=== PATIENT | male | born 1990 | race Caucasian/White ===

== ENCOUNTER 2017-11-23 17:42 | Emergency (ER) | payer MEDICARE, OTHER ==
[2017-11-23 17:50] VITALS: BP 112/70; PULSE 86; RESP 18; TEMP 98.5
--- NOTE | 2017-11-23 18:20 | XR ---
EXAMINATION TYPE: XR chest 2V DATE OF EXAM: 11/23/2017 COMPARISON: 04/29/1711 HISTORY: Chest pain TECHNIQUE: Frontal and lateral views of the chest are obtained. FINDINGS: Heart and mediastinum are normal. Lungs are clear. Diaphragm is normal. Bony thorax is int act. IMPRESSION: Normal chest. No change.
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
[2017-11-23] MEDS ORDERED: predniSONE 50 MG TAB PO STA (18:53)
== END 2017-11-23 18:58 | disposition home or self-care (01) ==
LOC: EC 17:42
DX: R05 Cough (principal); R09.81 Nasal congestion; R09.89 Other specified symptoms and signs involving the circulatory and respiratory systems; J02.9 Acute pharyngitis, unspecified; F17.200 Nicotine dependence, unspecified, uncomplicated
CPT/HCPCS: 87081; 87430; 71046; 99283; J7512

== ENCOUNTER 2017-12-05 15:37 | Emergency (ER) | payer MEDICARE, OTHER ==
[2017-12-05 15:46] VITALS: BP 136/83; PULSE 78; RESP 16; TEMP 98.2
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
[2017-12-05] MEDS ORDERED: HYDROcodone/APAP 5-325MG 1 EACH TAB PO STA (16:38)
== END 2017-12-05 16:47 | disposition home or self-care (01) ==
LOC: EC 15:37
DX: K08.89 Other specified disorders of teeth and supporting structures (principal); F17.200 Nicotine dependence, unspecified, uncomplicated
CPT/HCPCS: 99282

== ENCOUNTER 2017-12-13 21:28 | Emergency (ER) | payer MEDICARE, OTHER ==
[2017-12-13 21:38] VITALS: BP 120/75; PULSE 85; RESP 16; TEMP 98.3
[2017-12-13] MEDS ORDERED: KETOROLAC 30 MG/ML 1 ML VIAL IM STA (22:53)
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
[2017-12-13] MEDS ORDERED: PENICILLIN V POTASSIUM 250 MG TAB PO STA (23:41)
[2017-12-13] MEDS ORDERED: PENICILLIN VK 500MG STARTER 4 TAB BTL PO STA (23:54)
== END 2017-12-14 00:02 | disposition home or self-care (01) ==
LOC: EC 21:28
DX: M27.3 Alveolitis of jaws (principal); K08.89 Other specified disorders of teeth and supporting structures; K08.409 Partial loss of teeth, unspecified cause, unspecified class; F17.200 Nicotine dependence, unspecified, uncomplicated
CPT/HCPCS: 99282; 96372; J1885

== ENCOUNTER 2018-11-20 17:17 | Emergency (ER) | payer MEDICARE, OTHER ==
[2018-11-20 17:23] VITALS: BP 119/77; PULSE 92; RESP 18; TEMP 98.2
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
== END 2018-11-20 18:20 | disposition home or self-care (01) ==
LOC: EC 17:17
DX: S90.851A Superficial foreign body, right foot, initial encounter (principal); F17.200 Nicotine dependence, unspecified, uncomplicated; W45.8XXA Other foreign body or object entering through skin, initial encounter
CPT/HCPCS: 28190; 99283

== ENCOUNTER 2018-11-28 17:02 | Emergency (ER) | payer MEDICARE, OTHER ==
[2018-11-28 17:05] VITALS: BP 121/75; PULSE 91; RESP 20; TEMP 98
[2018-11-28] MEDS ORDERED: SODIUM CHLORIDE 0.9% 1,000 ML IV STA (17:06)
[2018-11-28] MEDS ORDERED: ONDANSETRON 4 MG/2 ML VIAL IVP STA (17:07)
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
[2018-11-28 17:36] LABS: Basophils # (A) 0.2 k/uL (0-0.2); Basophils % (A) 1 %; Eosinophils # (A) 0.3 k/uL (0-0.7); Eosinophils % (A) 3 %; HCT 47.1 % (39.0-53.0); HGB 16.4 gm/dL (13.0-17.5); Lymphocytes # (A) 1.9 k/uL (1.0-4.8); Lymphocytes % (A) 17 %; MCH 31.2 pg (25.0-35.0); MCHC 34.8 g/dL (31.0-37.0); MCV 89.7 fL (80.0-100.0); Mean Platelet Volume 7.1; Monocytes # (A) 0.8 k/uL (0-1.0); Monocytes % (A) 7 %; Neutrophils # (A) 8.2 k/uL (1.3-7.7); Neutrophils % (A) 71 %; Platelet Count 211 k/uL (150-450); RBC 5.26 m/uL (4.30-5.90); RDW 15.1 % (11.5-15.5); WBC 11.5 k/uL (3.8-10.6)
[2018-11-28 17:49] LABS: ALT 36 U/L (21-72); AST 24 U/L (17-59); African American GFR (CKD) >90 (>60 ml/min/1.73 sqM); Albumin 3.7 g/dL (3.5-5.0); Alkaline Phosphatase 43 U/L (38-126); Anion Gap 6 mmol/L; Blood Urea Nitrogen 7 mg/dL (9-20); Calcium 9.2 mg/dL (8.4-10.2); Carbon Dioxide 27 mmol/L (22-30); Chloride 107 mmol/L (98-107); Glucose 93 mg/dL (74-99); Sodium 140 mmol/L (137-145); Total Bilirubin 0.5 mg/dL (0.2-1.3); Total Protein 5.7 g/dL (6.3-8.2)
== END 2018-11-28 18:18 | disposition home or self-care (01) ==
LOC: EC 17:02
DX: K52.9 Noninfective gastroenteritis and colitis, unspecified (principal); F17.200 Nicotine dependence, unspecified, uncomplicated
CPT/HCPCS: 36415; 80053; 83690; 85025; 99284; 96374; 96361; J2405

== ENCOUNTER 2020-02-26 09:29 | Emergency (ER) | payer MEDICARE, OTHER | END 2020-02-26 09:33 | disposition left against medical advice (07) | LOC: EC 09:29 | DX: R11.10 Vomiting, unspecified (principal); R19.7 Diarrhea, unspecified; R05 Cough; Z53.8 Procedure and treatment not carried out for other reasons | CPT/HCPCS: 99499 ==

== ENCOUNTER 2020-03-06 09:11 | Observation (INO) | payer MEDICARE, OTHER ==
[2020-03-06] MEDS ORDERED: SODIUM CHLORIDE 0.9% 500 ML 500 ML IV ONE (09:26)
[2020-03-06 09:57] LABS: Basophils # (A) 0.1 k/uL (0-0.2); Basophils % (A) 1 %; Eosinophils # (A) 0.3 k/uL (0-0.7); Eosinophils % (A) 2 %; HCT 54.9 % (39.0-53.0); HGB 18.7 gm/dL (13.0-17.5); Lymphocytes # (A) 3.4 k/uL (1.0-4.8); Lymphocytes % (A) 23 %; MCH 31.9 pg (25.0-35.0); MCV 93.6 fL (80.0-100.0); Mean Platelet Volume 7.7; Monocytes # (A) 0.7 k/uL (0-1.0); Monocytes % (A) 5 %; Neutrophils # (A) 10.1 k/uL (1.3-7.7); Neutrophils % (A) 68 %; Platelet Count 283 k/uL (150-450); RBC 5.87 m/uL (4.30-5.90); RDW 12.9 % (11.5-15.5); WBC 14.9 k/uL (3.8-10.6)
[2020-03-06 10:03] LABS: Appearance,Urine Clear (Clear); Bacteria,Urine Rare /hpf; Bilirubin,Urine Negative (Negative); Blood,Urine Moderate (Negative); Color,Urine Light Yellow; Glucose,Urine (UA) Negative (Negative); Ketones,Urine 1+ (Negative); Leukocyte Esterase,Urine Negative (Negative); Mucus,Urine Rare /hpf; Nitrite,Urine Negative (Negative); PH, Urine 5.5 (5.0-8.0); Protein,Urine 1+ (Negative); RBC,Urine 4 /hpf (0-5); Specific Gravity,Urine 1.013 (1.001-1.035); Sperm,Urine Rare /hpf; Urobilinogen,Urine <2.0 mg/dL (<2.0); WBC,Urine <1 /hpf (0-5)
[2020-03-06 10:08] LABS: Amphetamine Screen,Urine Not Detected (NotDetected); Barbiturate Screen,Urine Not Detected (NotDetected); Benzodiazepines Screen,Urine Not Detected (NotDetected); Cocaine Screen,Urine Not Detected (NotDetected); Methadone Screen, Urine Not Detected (NotDetected); Opiate Screen,Urine Not Detected (NotDetected); Oxycodone Screen, Urine Not Detected (NotDetected); Phencyclidine Screen,Urine Not Detected (NotDetected); Tricyclic Antidepressant,Urine Not Detected (NotDetected); Urn Cannabinoid Scrn Detected (NotDetected)
[2020-03-06 10:13] LABS: AST 45 U/L (17-59); African American GFR (CKD) >90 (>60 ml/min/1.73 sqM); Albumin 5.1 g/dL (3.5-5.0); Alkaline Phosphatase 79 U/L (38-126); Anion Gap 21 mmol/L; Blood Urea Nitrogen 12 mg/dL (9-20); Calcium 9.5 mg/dL (8.4-10.2); Carbon Dioxide 10 mmol/L (22-30); Chloride 108 mmol/L (98-107); Glucose 180 mg/dL (74-99); Non-African American GFR(CKD) >90 (>60 ml/min/1.73 sqM); Potassium 4.2 mmol/L (3.5-5.1); Sodium 139 mmol/L (137-145); Total Bilirubin 0.7 mg/dL (0.2-1.3); Total Protein 7.8 g/dL (6.3-8.2)
--- NOTE | 2020-03-06 10:16 | CT ---
EXAMINATION TYPE: CT brain wo con DATE OF EXAM: 03/06/2020 COMPARISON: CT brain 01/15/2011 HISTORY: Altered mental status CT DLP: 1142.4 mGycm. Automated Exposure Control for Dose Reduction was Utilized. TECHNIQUE: CT scan of the head is performed without contrast. FINDINGS: There is no acute intracranial hemorrhage, mass effect, or midline shift identified. The ventricles and sulci are within normal limits in size. The globes are intact and the visualized sin uses are clear. Dental amalgam causes some streak artifact. Question some patchy white matter low-att enuation. IMPRESSION: No acute intracranial hemorrhage, mass effect, or midline shift is seen. Question some n onspecific white matter low-attenuation, MRI may be of benefit
[2020-03-06 10:20] LABS: ALT 42 U/L (4-49)
[2020-03-06 10:32] LABS: Partial Thromboplastin Time 22.3 sec (22.0-30.0); Prothrombin Time 10.2 sec (9.0-12.0)
--- NOTE | 2020-03-06 11:01 | XR ---
EXAMINATION TYPE: XR chest 2V DATE OF EXAM: 03/06/2020 COMPARISON: Chest x-ray November 23, 2017 HISTORY: Seizure and weakness. TECHNIQUE: Frontal and lateral views of the chest are obtained. FINDINGS: There is no new suspicious focal air space opacity, pleural effusion, or pneumothorax seen . The cardiac silhouette size remains within normal limits. The osseous structures are intact. Ove rlying EKG leads currently. IMPRESSION: No acute cardiopulmonary process. No significant change from prior.
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
[2020-03-06] MEDS ORDERED: ACETAMINOPHEN TAB 500 MG TAB PO STA (11:11)
[2020-03-06 11:50] LABS: ALT 35 U/L (4-49); AST 46 U/L (17-59); African American GFR (CKD) >90 (>60 ml/min/1.73 sqM); Albumin 4.7 g/dL (3.5-5.0); Alkaline Phosphatase 65 U/L (38-126); Anion Gap 8 mmol/L; Blood Urea Nitrogen 12 mg/dL (9-20); Calcium 9.2 mg/dL (8.4-10.2); Carbon Dioxide 21 mmol/L (22-30); Chloride 110 mmol/L (98-107); Glucose 77 mg/dL (74-99); Non-African American GFR(CKD) >90 (>60 ml/min/1.73 sqM); Potassium 4.4 mmol/L (3.5-5.1); Sodium 139 mmol/L (137-145); Total Bilirubin 0.7 mg/dL (0.2-1.3); Total Protein 7.3 g/dL (6.3-8.2)
[2020-03-06] MEDS ORDERED: LORazepam 2 MG/ML INJ IV PRN (12:34)
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
--- NOTE | 2020-03-06 15:50 | EEG ---
ELECTROENCEPHALOGRAM REPORT DATE OF SERVICE: 03/06/2020 PREAMBLE: This is a 29-year-old male with new onset seizure. EEG FINDINGS: This is a 21 channel routine EEG recording on this patient utilizing 10/20 international system with referential and bipolar montages. The background consists of well-developed, moderately well regulated, 8-10 hertz alpha, reactive to eye opening and closing. Intermittent paroxysmal high-amplitude rhythmic and dysrhythmic 6 hertz theta activity. Background is posterior dominant and is reactive to eye opening and closing. Drowsiness was seen with presence of bilaterally symmetric theta frequency rhythm. Some stage II sleep was seen with presence of sleep spindles and vertex waves. Sharp appearing waves were seen, but did not appear clearly epileptiform in nature. There is no definitive epileptiform activity seen. EKG rhythm lead revealed no obvious arrhythmia. IMPRESSION: This is an abnormal EEG due to intermittent, paroxysmal, high amplitude rhythmic 6 Hz theta activity seen in a generalized distribution. This is suggestive of mild generalized cerebral dysfunction as can be seen with encephalopathy of metabolic or vascular origin. Paroxysmal high amplitude rhythmic theta activity may suggest convulsive tendency. No definitive epileptiform activity was seen. Suggest prolonged, sleep-deprived EEG. MMODL / IJN: [id number] / [facility]
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
[2020-03-06] MEDS: ACETAMINOPHEN TAB 325 MG TAB PO PRN (18:19)
[2020-03-07 07:57] VITALS: BP 128/76; PULSE 74; RESP 12; TEMP 98.6
--- NOTE | 2020-03-07 09:56 | MR ---
EXAMINATION TYPE: MR brain wo/w con DATE OF EXAM: 03/07/2020 COMPARISON: CT brain 03/06/2020 HISTORY: New onset seizure, head injury CONTRAST: Performed utilizing 9.5 mL intravenous Gadavist gadolinium contrast. TECHNIQUE: Multiplanar, multiecho imaging on a 3.0 Mallika magnet is performed through the brain. Stud y is performed within 24 hours of arrival to the hospital. The craniovertebral junction is normal. The pituitary is normal. Diffusion-weighted imaging is performed. No abnormal hyperintensity is present to suggest an acute i ntracranial infarct or acute ischemic change. There is a punctate hyperintensity within the right merino radiata. Similar smaller punctate area may be on the left. This is within normal limits for the patient age. Otherwise, signal through the brai n is normal. Ventricles and sulci are appropriate for the patient age. Temporal lobes appear symmetrical. Following contrast administration, no abnormal enhancement is evident. IMPRESSIONS: 1. Normal pre and postcontrast MRI brain
[2020-03-07] MEDS: ACETAMINOPHEN TAB 325 MG TAB PO PRN (10:24)
[2020-03-07] MEDS ORDERED: CEPHALEXIN 500 MG CAP PO STA (12:27)
[2020-03-07] MEDS ORDERED: levETIRAcetam 500 MG TAB PO STA (12:42)
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
== END 2020-03-07 13:13 | disposition home or self-care (01) ==
LOC: EC 09:11 → 1SOBS 11:19
PROVIDERS: ADMIT Internal Medicine; ATTEND Internal Medicine
DX: R56.9 Unspecified convulsions (principal); R00.0 Tachycardia, unspecified; R94.01 Abnormal electroencephalogram [EEG]; F17.210 Nicotine dependence, cigarettes, uncomplicated; E66.9 Obesity, unspecified; D72.829 Elevated white blood cell count, unspecified; Z87.820 Personal history of traumatic brain injury; Z87.828 Personal history of other (healed) physical injury and trauma; Z68.30 Body mass index [BMI] 30.0-30.9, adult; Z82.0 Family history of epilepsy and other diseases of the nervous system
CPT/HCPCS: 99285; 36415; 95819; 93005; 80053; 84484; 85025; 85610; 85730; 81001; 80306; 71046; 70450; 70553; G0378 ×2; A9585

== ENCOUNTER 2020-03-12 14:58 | Emergency (ER) | payer MEDICARE, OTHER ==
[2020-03-12 15:08] VITALS: RESP 18; TEMP 98.6
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
[2020-03-12 15:42] VITALS: BP 124/88; PULSE 74
--- NOTE | 2020-03-12 16:11 | XR ---
EXAMINATION TYPE: XR shoulder complete RT DATE OF EXAM: 03/12/2020 COMPARISON: NONE HISTORY: Pain TECHNIQUE: 3 views FINDINGS: I see no fracture nor dislocation. Joint spaces are normal. There are no pathologic calcifi cations. IMPRESSION: Negative right shoulder exam.
[2020-03-12] MEDS ORDERED: IBUPROFEN 600 MG TAB PO STA (16:18)
== END 2020-03-12 16:33 | disposition home or self-care (01) ==
LOC: EC 14:58
DX: M25.511 Pain in right shoulder (principal); F17.200 Nicotine dependence, unspecified, uncomplicated; X50.1XXA Overexertion from prolonged static or awkward postures, initial encounter
CPT/HCPCS: 99283

== ENCOUNTER 2020-11-29 13:49 | Emergency (ER) | payer MEDICARE, OTHER ==
[2020-11-29 14:02] VITALS: BP 127/78; PULSE 70; RESP 16; TEMP 98.5
[2020-11-29] MEDS ORDERED: DIPH,PERTUS(ACELL)TETVAC-LF 0.5 ML VIAL IM ONE (14:11)
[2020-11-29] MEDS ORDERED: AMOXIC-POT CLAV 875-125MG 1 EACH TAB PO STA (14:13)
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
== END 2020-11-29 14:42 | disposition home or self-care (01) ==
LOC: EC 13:49
DX: S91.032A Puncture wound without foreign body, left ankle, initial encounter (principal); S80.812A Abrasion, left lower leg, initial encounter; F17.200 Nicotine dependence, unspecified, uncomplicated; Z23 Encounter for immunization; W55.01XA Bitten by cat, initial encounter
CPT/HCPCS: 90471; 90715; 99283

== ENCOUNTER 2024-03-13 19:01 | Emergency (ER) | payer MEDICARE, OTHER ==
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
[2024-03-13] MEDS: SODIUM CHLORIDE 0.9% 1,000 ML IV STA (20:05)
[2024-03-13] MEDS: KETOROLAC 15 MG/ML 1 ML VIAL IVP STA (20:11)
[2024-03-13 20:22] LABS: Basophils % (A) 0 %; Eosinophils # (A) 0.2 k/uL (0-0.7); Eosinophils % (A) 2 %; HCT 50.2 % (39.0-53.0); Lymphocytes # (A) 2.4 k/uL (1.0-4.8); Lymphocytes % (A) 21 %; MCH 31.1 pg (25.0-35.0); MCHC 33.9 g/dL (31.0-37.0); MCV 91.7 fL (80.0-100.0); Mean Platelet Volume 7.7; Monocytes # (A) 0.7 k/uL (0-1.0); Monocytes % (A) 6 %; Neutrophils # (A) 8.1 k/uL (1.3-7.7); Neutrophils % (A) 70 %; Platelet Count 255 k/uL (150-450); RBC 5.48 m/uL (4.30-5.90); RDW 12.5 % (11.5-15.5); WBC 11.6 k/uL (3.8-10.6)
[2024-03-13 20:24] LABS: Appearance,Urine Clear (Clear); Bilirubin,Urine Negative (Negative); Blood,Urine Negative (Negative); Color,Urine Yellow; Glucose,Urine (UA) Negative (Negative); Ketones,Urine Negative (Negative); Leukocyte Esterase,Urine Negative (Negative); Nitrite,Urine Negative (Negative); Protein,Urine Negative (Negative); Specific Gravity,Urine 1.025 (1.001-1.035)
[2024-03-13 20:35] LABS: ALT 17 U/L (4-49); AST 21 U/L (17-59); African American GFR (CKD) >90 (>60 ml/min/1.73 sqM); Albumin 5.3 g/dL (3.5-5.0); Alkaline Phosphatase 62 U/L (38-126); Anion Gap 10 mmol/L; Blood Urea Nitrogen 9 mg/dL (9-20); Carbon Dioxide 28 mmol/L (22-30); Chloride 100 mmol/L (98-107); Glucose 90 mg/dL (74-99); Non-African American GFR(CKD) >90 (>60 ml/min/1.73 sqM); Potassium 3.9 mmol/L (3.5-5.1); Sodium 138 mmol/L (137-145); Total Bilirubin 0.5 mg/dL (0.2-1.3); Total Protein 7.6 g/dL (6.3-8.2)
--- NOTE | 2024-03-13 20:52 | CT ---
EXAMINATION TYPE: CT abdomen pelvis wo con DATE OF EXAM: 03/13/2024 8:32 PM COMPARISON: None. CLINICAL INDICATION: Male, 33 years old with history of left flank pain; Left side flank pain. TECHNIQUE: Axial CT abdomen pelvis wo con;Sagittal and coronal reformats were created on a separate workstation. Oral contrast used: without Oral Contrast (none if empty) CT DLP: 438.7 mGycm, Automated exposure control for dose reduction was used. FINDINGS: LOWER CHEST: Unremarkable ABDOMEN LIVER: Unremarkable GALLBLADDER AND BILE DUCTS: Unremarkable. PANCREAS: Unremarkable. SPLEEN: Unremarkable. ADRENAL GLANDS: Unremarkable. KIDNEYS AND URETERS: No evidence of hydronephrosis or renal calculus. The ureters are unremarkable. PELVIS BLADDER: No evidence for wall thickening or mass given limitations of exam. REPRODUCTIVE: Unremarkable. ABDOMEN & PELVIS STOMACH AND BOWEL: The appendix is normal. No evidence of bowel obstruction. PERITONEUM/RETROPERITONEUM: No evidence of pneumoperitoneum or free fluid. VASCULATURE: No evidence of aortic aneurysm. MUSCULOSKELETAL: No acute osseous abnormalities LYMPH NODES: No gross evidence for lymphadenopathy. SOFT TISSUE/ABDOMINAL WALL: Unremarkable IMPRESSION: No acute abnormality in the abdomen/pelvis or CT findings to explain reported symptoms. [facility], , 03/13/2024 8:50 PM
--- NOTE | 2024-03-13 21:14 | US ---
EXAMINATION TYPE: US scrotum with doppler. DATE OF EXAM: 03/13/2024 COMPARISON: NONE CLINICAL INDICATION: Male, 33 years old with history of left testicular pain; Left side pain. No inj ury. No swelling. Patient states his left teste feels like it is always higher now. TECHNIQUE: Grayscale, color Doppler and spectral Doppler imaging of the scrotum. FINDINGS: EXAM MEASUREMENTS: TESTICLES: Right Testicle: 3.8 x 3.5 x 2.4 cm Left Testicle: 4.4 x 4.2 x 2.7 cm EPIDIDYMIS HEAD: Right Epididymis: 0.9 x 0.8 x 0.4 cm Left Epididymis: 1.0 x 0.9 x 0.6 cm Doppler performed to assess for testicular vascularity; good bilateral color flow and spectral wavefo leatha are seen. There is no evidence of testicular torsion. Presence of hydroceles: Left Presence of varicoceles: no Left epididymal head likely calcification measuring 4 mm. Bilateral epididymides are otherwise unrema rkable. Relatively homogeneous echotexture of the bilateral testicles. IMPRESSION: 1. No sonographic evidence of testicular torsion. 2. Small left hydrocele. [facility], , 03/13/2024 9:11 PM
[2024-03-13 22:05] VITALS: BP 132/81; PULSE 79; RESP 17; TEMP 98
== END 2024-03-13 22:05 | disposition home or self-care (01) ==
LOC: EC 19:01
DX: N43.3 Hydrocele, unspecified (principal); F17.200 Nicotine dependence, unspecified, uncomplicated
CPT/HCPCS: 36415; 80053; 83605; 85025; 81003; 93975; 76870; 74176; 99284; 96374; 96361; J1885